=== PATIENT | male | born 1980 ===

== ENCOUNTER 2018-05-20 20:57 | Emergency (ER) | payer MEDICAID ==
--- NOTE | 2018-05-20 22:35 | C.PDOC ---
History Of Present Illness 37 year old male presents with vomiting and abdominal pain after being on a 3 day cocaine binge. Brother is at bedside trying to help him seek rehab program. Time Seen by Provider: 05/20/18 21:42 Chief Complaint (Nursing): Substance Abuse History Per: Patient History/Exam Limitations: no limitations Onset/Duration Of Symptoms: Hrs Current Symptoms Are (Timing): Still Present Suicide/Self Injury Attempted (Context): None Recent travel outside of the [place]: No Past Medical History Reviewed: Historical Data, Nursing Documentation, Vital Signs Vital Signs: Last Vital Signs Temp 98 F 05/20/18 21:17 Pulse 96 H 05/20/18 21:17 Resp 20 05/20/18 21:17 BP 146/118 H 05/20/18 21:17 Pulse Ox 100 05/20/18 21:17 Family History: States: No Known Family Hx - Social History Hx Alcohol Use: No Hx Substance Use: Yes - Immunization History Hx Tetanus Toxoid Vaccination: No Hx Influenza Vaccination: No Hx Pneumococcal Vaccination: No Review Of Systems Constitutional: Negative for: Fever, Chills Cardiovascular: Negative for: Chest Pain, Palpitations Respiratory: Negative for: Cough, Shortness of Breath Gastrointestinal: Positive for: Nausea, Vomiting, Abdominal Pain Neurological: Negative for: Weakness, Numbness Physical Exam - Physical Exam Appears: Non-toxic, Other (Irritable, mild to moderate distress) Skin: Normal Color, Warm Head: Atraumatic, Normacephalic Eye(s): bilateral: Normal Inspection Oral Mucosa: Moist Neck: Normal, No Midline Cervical Tenderness, No Paracervical Tenderness, Supple Chest: Symmetrical, No Tenderness Cardiovascular: Rhythm Regular Respiratory: Normal Breath Sounds, No Rales, No Rhonchi, No Wheezing Gastrointestinal/Abdominal: Bowel Sounds (Hyperactive), Soft, Tenderness (Vaguely), No Guarding, No Rebound Neurological/Psych: Oriented x3, Normal Speech ED Course And Treatment O2 Sat by Pulse Oximetry: 100 (Room air) Pulse Ox Interpretation: Normal Medical Decision Making Medical Decision Making: persistent cocaine abuse 3 day binge diarrhea low susp of mesenteric ischemia- belly benign asleep and comfortable after ED tx ok for d/c and opt f/u. Disposition Doctor Will See Patient In The: Office Counseled Patient/Family Regarding: Studies Performed, Diagnosis - Disposition Referrals: Alcoholics Anonymous [Outside] [facility] [Outside] [facility] [Outside] [facility] [Outside] [facility] [Outside] [facility] [Outside] Disposition: HOME/ ROUTINE Disposition Time: 22:35 Condition: GOOD Additional Instructions: seek outpatient resources for substance aubse isues there is no Detox for Cocaine abuse @ [facility] Rehabilitation is a theraputic option to be explored Zofran for nausea 1 tab every 6 hours as needed Pepcid 20 mg @ night for gastritis symptoms Motrin/Advil 400-600 mg every 6 hours for abdominal discomfort Return to ED if symtpoms significantly change or worsten. Prescriptions: Ondansetron ODT [Zofran ODT] 4 mg PO Q6H PRN #6 odt PRN Reason: Nausea/Vomiting Instructions: Cocaine Use Disorder Forms: [facility] ([facility]) - Clinical Impression Clinical Impression: Cocaine abuse, Diarrhea - Scribe Statement The provider has reviewed the documentation as recorded by the Scribe Lamberto Ag All medical record entries made by the Scribe were at my direction and personally dictated by me. I have reviewed the chart and agree that the record accurately reflects my personal performance of the history, physical exam, medical decision making, and the department course for this patient. I have also personally directed, reviewed, and agree with the discharge instructions and disposition.
[2018-05-20 23:07] VITALS: BP 127/86; PULSE 82; RESP 16; TEMP 98.1
[2018-05-21 00:36] VITALS: O2SAT 100
== END 2018-05-20 23:07 | disposition home or self-care (01) ==
LOC: C.ER 20:57
DX: F14.10 Cocaine abuse, uncomplicated (principal); R19.7 Diarrhea, unspecified
CPT/HCPCS: 96372; 99283; J1885

== ENCOUNTER 2018-05-21 06:06 | Inpatient (IN) | payer MEDICAID ==
--- NOTE | 2018-05-21 06:47 | C.PDOC ---
History Of Present Illness patient c/o diffuse abdominal pain that returned once he returned home the being evaluated in this ED yesterday for the same issue. he came in reporting abdominal pain s/p 3 day binge of cocaine. he states he vomited several times yesterday but none since the pain returned. he denies fever, chills, chest pain or sob. Time Seen by Provider: 05/21/18 06:43 Chief Complaint (Nursing): Abdominal Pain History Per: Patient History/Exam Limitations: no limitations Current Symptoms Are (Timing): Worse Severity: Severe Location Of Pain/Discomfort: Diffuse Quality Of Discomfort: Unable To Describe Associated Symptoms: Nausea, Vomiting. denies: Fever, Chills, Diarrhea, Back Pain, Chest Pain, Urinary Symptoms Past Medical History Vital Signs: Last Vital Signs Temp 97.6 F 05/21/18 06:11 Pulse 104 H 05/21/18 06:11 Resp BP 154/120 H 05/21/18 06:11 Pulse Ox 100 05/21/18 06:11 - Medical History PMH: CAD Surgical History: Coronary Stent Family History: States: CAD, Hypertension - Social History Hx Alcohol Use: No Hx Substance Use: Yes - Immunization History Hx Tetanus Toxoid Vaccination: No Hx Influenza Vaccination: No Hx Pneumococcal Vaccination: No Review Of Systems Constitutional: Negative for: Fever, Chills Cardiovascular: Negative for: Chest Pain, Palpitations Respiratory: Negative for: Shortness of Breath Gastrointestinal: Positive for: Nausea, Vomiting, Abdominal Pain Genitourinary: Negative for: Dysuria Musculoskeletal: Negative for: Back Pain Skin: Negative for: Rash Neurological: Negative for: Weakness, Numbness Physical Exam - Physical Exam Appears: In Acute Distress Skin: Normal Color Head: Atraumatic, Normacephalic Neck: Normal, Normal ROM Chest: Symmetrical Cardiovascular: Rhythm Regular Respiratory: Normal Breath Sounds, No Accessory Muscle Use, No Stridor, No Wheezing Gastrointestinal/Abdominal: Tenderness, No Distention Back: Normal Inspection, No CVA Tenderness Extremity: Normal ROM, No Tenderness Extremity: Bilateral: Atraumatic Pulses: Left Radial: Normal, Right Radial: Normal Neurological/Psych: Oriented x3, Normal Speech, Normal Motor, Normal Sensation ED Course And Treatment O2 Sat by Pulse Oximetry: 100 Disposition - Disposition Disposition Time: 06:55 Condition: STABLE - Clinical Impression Clinical Impression: Abdominal pain Physician Patient Turnover Patient Signed Over To: Bisi Slaughter (abd pain)
[2018-05-21 07:05] LABS: BASO % 0.1 % (0.0-2.0); HEMOGLOBIN 15.9 g/dL (12.0-18.0); LYMPH # 0.8 K/uL (1.0-4.3); LYMPH % 4.5 % (20.0-40.0); MEAN CORPUSCULAR HEMOGLOBIN 28.8 pg (27.0-31.0); MEAN CORPUSCULAR HGB CONC 33.5 g/dL (33.0-37.0); MEAN PLATELET VOLUME 7.7 fL (7.2-11.7); MONO # 1.3 K/uL (0.0-0.8); MONO % 7.6 % (0.0-10.0); NEUT # 15.4 K/uL (1.8-7.0); NEUT % 87.8 % (50.0-75.0); PLATELET COUNT 476 K/uL (130-400); RBC 5.53 Mil/uL (4.40-5.90); RED CELL DISTRIBUTION WIDTH 14.4 % (11.5-14.5); WHITE BLOOD COUNT 17.5 K/uL (4.8-10.8)
[2018-05-21] MEDS ORDERED: Sodium Chloride 0.9% 1,000 ML IV STA ×3 (07:14→08:07)
[2018-05-21 07:16] LABS: ALB/GLOB RATIO 1.5 (1.0-2.1); ALBUMIN 4.8 g/dL (3.5-5.0); CALCIUM 9.8 mg/dl (8.6-10.4)
[2018-05-21] MEDS ORDERED: Sodium Chloride 0.9% 1,000 ML ONE (07:22)
[2018-05-21 07:26] LABS: BANDS 1 % (0-2); LYMPHOCYTE 7 % (20-40); MONOCYTE 10 % (0-10); NEUTROPHIL 82 % (50-75); PLATELET ESTIMATE NORMAL (NORMAL); TOTAL CELLS COUNTED 100
[2018-05-21 07:35] LABS: TROPONIN I 0.072 ng/mL (0.00-0.120)
[2018-05-21 07:49] LABS: VENOUS BLOOD GAS BASE EXCESS -4.6 mmol/L (0.0-2.0); VENOUS BLOOD GAS PCO2 53 mmHg (40-60); VENOUS BLOOD GAS PO2 20 mm/Hg (30-55); VENOUS BLOOD PH 7.25 (7.32-7.43)
[2018-05-21] MEDS ORDERED: Morphine 4 MG/ML VIAL ONE (07:53)
[2018-05-21 08:35] LABS: INR 1.2; PROTHROMBIN TIME 13.5 SECONDS (9.7-12.2)
[2018-05-21 08:59] LABS: CK-MB 4.6 ng/mL (0.0-3.38)
[2018-05-21] MEDS ORDERED: Sodium Chloride 0.9% 2,000 ML ONE (09:15)
--- NOTE | 2018-05-21 09:58 | CT ---
Date of service: 05/21/2018 PROCEDURE: CT Abdomen and Pelvis without intravenous contrast HISTORY: severe abdominal pain, cocaine use, lactade elevat COMPARISON: None. TECHNIQUE: Without contrast.. Contrast dose: 0 Radiation dose: Total exam DLP = 204.89 mGy-cm. This CT exam was performed using one or more of the following dose reduction techniques: Automated exposure control, adjustment of the mA and/or kV according to patient size, and/or use of iterative reconstruction technique. FINDINGS: LOWER THORAX: Unremarkable. LIVER: Unremarkable. No gross lesion or ductal dilatation. GALLBLADDER AND BILE DUCTS: High attenuation material within gallbladder lumen, likely sludge. No calcified gallstones. No mural thickening. PANCREAS: Grossly limited evaluation due to absent intravenous contrast and oral contrast opacification. Paucity of retroperitoneal fat. No gross abnormality. SPLEEN: Unremarkable. ADRENALS: Unremarkable. No mass. KIDNEYS AND URETERS: Multiple punctate nonobstructing left renal calculi. No right renal calculus. No hydronephrosis. No renal mass. VASCULATURE: Unremarkable. No aortic aneurysm. There is atherosclerotic calcification of the abdominal aorta. BOWEL: Multiple mildly dilated small bowel loops, up to 3.9 cm. Air-fluid levels. There is gas seen within large bowel. Most likely adynamic ileus but cannot rule out mechanical bowel obstruction. Follow-up advised. Evaluation of the bowel is limited by the absence of oral contrast material. No evidence of pneumatosis coli. APPENDIX: Not identified. No secondary findings. PERITONEUM: No other significant abnormality identified. Unremarkable. No free fluid. No free air. LYMPH NODES: Unremarkable. No enlarged lymph nodes. BLADDER: Nondistended REPRODUCTIVE: Unremarkable prostate. BONES: No acute fracture. OTHER FINDINGS: None. IMPRESSION: Probable adynamic ileus. Cannot rule out mechanical bowel obstruction. Limited examination. No evidence of pneumoperitoneum. Needs is seen
--- NOTE | 2018-05-21 10:39 | RAD ---
Date of service: 05/21/2018 HISTORY: cocaine use, abdominal pain COMPARISON: No prior. TECHNIQUE: 1 view obtained. FINDINGS: LUNGS: No active pulmonary disease. PLEURA: No significant pleural effusion identified, no pneumothorax apparent. Suspect minor right apical pleural thickening CARDIOVASCULAR: No aortic atherosclerotic calcification present. Heart size borderline/mildly enlarged. No pulmonary vascular congestion. OSSEOUS STRUCTURES: No significant abnormalities. VISUALIZED UPPER ABDOMEN: Normal. OTHER FINDINGS: None. IMPRESSION: No active disease. Suspect minor right apical pleural thickening
[2018-05-21] MEDS ORDERED: Piperacillin/Tazobact 3.375 gm 100 ML IV STA (11:48)
[2018-05-21] MEDS ORDERED: Lactated Ringer's 1,000 ML IV ONE (11:57)
[2018-05-21 11:58] LABS: SQUAMOUS EPITHIAL 1 /hpf (0-5); URINE BACTERIA RARE (<OCC); URINE BILIRUBIN NEGATIVE (NEGATIVE); URINE BLOOD 2+ (NEGATIVE); URINE CLARITY Hazy (Clear); URINE COLOR Yellow (YELLOW); URINE GLUCOSE (UA) NORMAL (Normal); URINE LEUKOCYTE ESTERASE NEG Leu/uL (Negative); URINE PROTEIN NEGATIVE (NEGATIVE); URINE UROBILINOGEN NORMAL mg/dL (0.2-1.0)
[2018-05-21] MEDS ORDERED: metroNIDAZOLE IV 500 mg/100 ml 500 MG/100 ML BAG IV SCH (12:00)
[2018-05-21] MEDS ORDERED: Piperacillin/Tazobact 3.375 gm 100 ML IVPB ONE (12:03)
[2018-05-21] MEDS: Lactated Ringer's 1,000 ML IV SCH ×3 (12:05→19:06)
[2018-05-21 12:43] LABS: BARBITURATES, UR NEGATIVE (NEGATIVE); BENZODIAZEPINES, UR NEGATIVE (NEGATIVE); PHENCYCLIDINE, UR NEGATIVE (NEGATIVE)
[2018-05-21 12:50] LABS: OPIATES, UR POSITIVE (NEGATIVE)
[2018-05-21] MEDS ORDERED: Fluconazole IV 400mg/200ml NS 200 ML IVPB SCH (13:00)
--- NOTE | 2018-05-21 13:32 | CP.PCM.CON ---
<Dana Baker - Last Filed: 05/21/18 15:44> History of Present Illness - History of Present Illness History of Present Illness: Surgery Consult Note for Dr. Evans HPI: Patient is a 37 year old male with history of cocaine use, CAD with stents who presents for diffuse nonspecific progressively worsening abdominal pain associated with nausea and vomiting. He states he has had diarrhea recently, up until this morning. He was recently admitted to [facility] earlier this week for pleural effusion and PE, treated with Brilinta, and discharged home with a script for Xarelto 2 days ago. He has not had Xarelto after discharge. He last used cocaine 2 days ago. Surgery consulted for persistent abdominal pain. PMH: pleural effusion, PE, CAD with 2 stents, cocaine PSH: CAD with 2 stents Home meds: none Allergies: NKDA Social hx: Cocaine use, marijuana use Review of Systems - Constitutional Constitutional: absent: Chills, Fever - Cardiovascular Cardiovascular: absent: Chest Pain, Dyspnea - Respiratory Respiratory: absent: Cough, Dyspnea - Gastrointestinal Gastrointestinal: Abdominal Pain, Nausea, Vomiting Past Patient History - Past Social History Smoking Status: Light Smoker < 10 Cigarettes Daily - CARDIAC Hx Heart Attack: Yes - PSYCHIATRIC Hx Substance Use: Yes - SURGICAL HISTORY Hx Coronary Stent: Yes Meds Allergies/Adverse Reactions: Allergies Allergy/AdvReac Type Severity Reaction Status Date / Time No Known Allergies Allergy Unverified 05/20/18 21:23 - Medications Medications: Current Medications Hydromorphone HCl (Dilaudid) 1 mg IVP Q3H PRN PRN Reason: Pain, severe (8-10) Lactated Ringer's (Lactated Ringer's) 1,000 mls @ 150 mls/hr IV .Q6H40M PRISCA Piperacillin Sod/Tazobactam Sod (Zosyn 3.375 Gm Iv Premix) 3.375 gm in 50 mls @ 100 mls/hr IVPB Q6H PRISCA; Protocol Fluconazole (Diflucan Iv 400mg/200ml Ns) 200 mls @ 100 mls/hr IVPB Q24H PRISCA; Protocol Last Admin: 05/21/18 12:45 Dose: 100 mls/hr Ondansetron HCl (Zofran Inj) 4 mg IVP Q6H PRN PRN Reason: Nausea/Vomiting Pantoprazole Sodium (Protonix Inj) 40 mg IVP Q12H [facility] Physical Exam - Constitutional Appears: In Acute Distress - Head Exam Head Exam: ATRAUMATIC, NORMOCEPHALIC - Eye Exam Eye Exam: EOMI, PERRL - ENT Exam ENT Exam: Mucous Membranes Dry - Neck Exam Neck exam: Positive for: Full Rom - Respiratory Exam Respiratory Exam: Clear to Auscultation Bilateral. absent: Rales, Rhonchi, Wheezes - Cardiovascular Exam Cardiovascular Exam: Tachycardia, +S1, +S2 - GI/Abdominal Exam GI & Abdominal Exam: Diminished Bowel Sounds, Distended, Rigid, Tenderness (diffuse ) - Extremities Exam Extremities exam: Positive for: pedal pulses present. Negative for: calf tenderness, pedal edema - Back Exam Back exam: absent: CVA tenderness (L), CVA tenderness (R) - Neurological Exam Neurological exam: Alert, Oriented x3 - Skin Additional comments: Diffuse mottling of skin with ecchymoses on abdomen, lower extremities and upper extremities Results - Vital Signs Recent Vital Signs: Last Vital Signs Temp 98 F 05/21/18 12:59 Pulse 130 H 05/21/18 12:59 Resp 24 05/21/18 12:59 BP 161/119 H 05/21/18 12:59 Pulse Ox 94 L 05/21/18 12:59 - Labs Result Diagrams: 05/21/18 07:02 05/21/18 07:02 Labs: Laboratory Results - last 24 hr 05/21/18 05/21/18 05/21/18 07:02 07:02 07:27 WBC 17.5 H RBC 5.53 Hgb 15.9 Hct 47.6 MCV 86.0 MCH 28.8 MCHC 33.5 RDW 14.4 Plt Count 476 H MPV 7.7 Neut % (Auto) 87.8 H Lymph % (Auto) 4.5 L Buchanan % (Auto) 7.6 Eos % (Auto) 0.0 Baso % (Auto) 0.1 Neut # (Auto) 15.4 H Lymph # (Auto) 0.8 L Buchanan # (Auto) 1.3 H Eos # (Auto) 0.0 Baso # (Auto) 0.0 Neutrophils % (Manual) 82 H Band Neutrophils % 1 Lymphocytes % (Manual) 7 L Monocytes % (Manual) 10 Platelet Estimate Normal PT INR APTT Fibrinogen D-Dimer, Quantitative pO2 VBG pH VBG pCO2 VBG HCO3 VBG Total CO2 VBG O2 Sat (Calc) VBG Base Excess VBG Potassium Glucose Lactate Crit Value Called To Crit Value Called By Crit Value Read Back Blood Gas Notified Time Sodium 131 L Potassium 3.9 Chloride 89 L Carbon Dioxide 23 Anion Gap 23 H BUN 71 H Creatinine 3.4 H Est GFR ( Amer) 25 Est GFR (Non-Af Amer) 20 Random Glucose 153 H Calcium 9.8 Total Bilirubin 0.7 AST 32 ALT 42 Alkaline Phosphatase 93 Total Creatine Kinase 230 H CK-MB (Mass) 4.60 H Troponin I 0.0720 Total Protein 8.0 Albumin 4.8 Globulin 3.2 Albumin/Globulin Ratio 1.5 Lipase 115 Venous Blood Potassium Urine Color Urine Clarity Urine pH Ur Specific Willis Urine Protein Urine Glucose (UA) Urine Ketones Urine Blood Urine Nitrate Urine Bilirubin Urine Urobilinogen Ur Leukocyte Esterase Urine WBC (Auto) Urine RBC (Auto) Ur Squamous Epith Cells Urine Bacteria Urine Opiates Screen Urine Methadone Screen Ur Barbiturates Screen Ur Phencyclidine Scrn Ur Amphetamines Screen U Benzodiazepines Scrn U Oth Cocaine Metabols U Cannabinoids Screen Blood Type Antibody Screen 05/21/18 05/21/18 05/21/18 07:42 08:09 08:09 WBC RBC Hgb Hct MCV MCH MCHC RDW Plt Count MPV Neut % (Auto) Lymph % (Auto) Buchanan % (Auto) Eos % (Auto) Baso % (Auto) Neut # (Auto) Lymph # (Auto) Buchanan # (Auto) Eos # (Auto) Baso # (Auto) Neutrophils % (Manual) Band Neutrophils % Lymphocytes % (Manual) Monocytes % (Manual) Platelet Estimate PT 13.5 H INR 1.2 APTT 35 H Fibrinogen 427 H D-Dimer, Quantitative 632 H pO2 20 L VBG pH 7.25 L VBG pCO2 53 VBG HCO3 19.3 VBG Total CO2 24.8 VBG O2 Sat (Calc) 23.0 L VBG Base Excess -4.6 L VBG Potassium 3.8 Glucose 130 H Lactate 5.2 H* Crit Value Called To Dr zuluaga Crit Value Called By Ralph rodriguez dental hygienist mobile coordinator Crit Value Read Back Y Blood Gas Notified Time 749 Sodium 134.0 Potassium Chloride 94.0 L Carbon Dioxide Anion Gap BUN Creatinine Est GFR ( Amer) Est GFR (Non-Af Amer) Random Glucose Calcium Total Bilirubin AST ALT Alkaline Phosphatase Total Creatine Kinase CK-MB (Mass) Troponin I Total Protein Albumin Globulin Albumin/Globulin Ratio Lipase Venous Blood Potassium 3.8 Urine Color Urine Clarity Urine pH Ur Specific Willis Urine Protein Urine Glucose (UA) Urine Ketones Urine Blood Urine Nitrate Urine Bilirubin Urine Urobilinogen Ur Leukocyte Esterase Urine WBC (Auto) Urine RBC (Auto) Ur Squamous Epith Cells Urine Bacteria Urine Opiates Screen Urine Methadone Screen Ur Barbiturates Screen Ur Phencyclidine Scrn Ur Amphetamines Screen U Benzodiazepines Scrn U Oth Cocaine Metabols U Cannabinoids Screen Blood Type A POSITIVE Antibody Screen Negative 05/21/18 05/21/18 11:45 11:45 WBC RBC Hgb Hct MCV MCH MCHC RDW Plt Count MPV Neut % (Auto) Lymph % (Auto) Buchanan % (Auto) Eos % (Auto) Baso % (Auto) Neut # (Auto) Lymph # (Auto) Buchanan # (Auto) Eos # (Auto) Baso # (Auto) Neutrophils % (Manual) Band Neutrophils % Lymphocytes % (Manual) Monocytes % (Manual) Platelet Estimate PT INR APTT Fibrinogen D-Dimer, Quantitative pO2 VBG pH VBG pCO2 VBG HCO3 VBG Total CO2 VBG O2 Sat (Calc) VBG Base Excess VBG Potassium Glucose Lactate Crit Value Called To Crit Value Called By Crit Value Read Back Blood Gas Notified Time Sodium Potassium Chloride Carbon Dioxide Anion Gap BUN Creatinine Est GFR ( Amer) Est GFR (Non-Af Amer) Random Glucose Calcium Total Bilirubin AST ALT Alkaline Phosphatase Total Creatine Kinase CK-MB (Mass) Troponin I Total Protein Albumin Globulin Albumin/Globulin Ratio Lipase Venous Blood Potassium Urine Color Yellow Urine Clarity Hazy Urine pH 5.0 Ur Specific Willis 1.014 Urine Protein Negative Urine Glucose (UA) Normal Urine Ketones Negative Urine Blood 2+ H Urine Nitrate Negative Urine Bilirubin Negative Urine Urobilinogen Normal Ur Leukocyte Esterase Neg Urine WBC (Auto) 5 Urine RBC (Auto) 2 Ur Squamous Epith Cells 1 Urine Bacteria Rare Urine Opiates Screen Positive H Urine Methadone Screen Negative Ur Barbiturates Screen Negative Ur Phencyclidine Scrn Negative Ur Amphetamines Screen Negative U Benzodiazepines Scrn Negative U Oth Cocaine Metabols Positive H U Cannabinoids Screen Positive H Blood Type Antibody Screen Assessment & Plan - Assessment and Plan (Free Text) Assessment: 37 year old male with history of CAD with stents, cocaine use, recent PE who presents with severe abdominal pain. Plan: CT reviewed with radiologist and attending Dr. Evans No extraluminal free air is noted 16 Mauritian NG tube inserted with 800cc pink gastric output Puentes inserted with 200cc of urine output Patient's abdomen noted to be more soft after NG tube placement. If pain persists and clinical symptoms worsen, will repeat CT scan with contrast through NG tube Monitor strict I&Os from NG Tube and puentes IV Fluid resuscitation Further medical management by ICU Case discussed with Dr. Cristina Baker, PGY1 <Bahman Evans B - Last Filed: 05/23/18 18:40> Results - Vital Signs Recent Vital Signs: Last Vital Signs Temp 98.8 F 05/22/18 08:00 Pulse 101 H 05/22/18 10:00 Resp 17 05/22/18 10:00 BP 98/62 L 05/22/18 09:58 Pulse Ox 100 05/22/18 10:00 - Labs Result Diagrams: 05/22/18 06:31 05/22/18 06:31 Attending/Attestation - Attestation I have personally seen and examined this patient.: Yes I have fully participated in the care of the patient.: Yes I have reviewed all pertinent clinical information: Yes Notes (Text): Pt was seen and examined at bedside Agree with above note and assessment Pt with IVDA, PE with Abdominal pain and Diarrhea Abdomen: Soft, Mild Distended, Mild tender, No peritoneal signs Labs and Radiology reviewed Ass: IVDA, PE, Ileus, Coliits/Enteritis Plan : IV antibiotics NG tube to LIS NPO, IVF Repeat Labs in am Repeat CT scan if no improvement in lactate after resuscitation. c.w current mx Plan d.w pt in detail Risk and benefit explained in detail.
--- NOTE | 2018-05-21 14:02 | RAD ---
Date of service: 05/21/2018 HISTORY: Severe abdominal pain COMPARISON: None available. TECHNIQUE: 1 view obtained. FINDINGS: BOWEL: Dilated small bowel, colon. Air-fluid level in the stomach. No visible free air. BONES: Normal. OTHER FINDINGS: None. IMPRESSION: Distended colon and small bowel as well as stomach. Etiology uncertain. No visible free air.
--- NOTE | 2018-05-21 14:04 | RAD ---
Date of service: 05/21/2018 HISTORY: NG Tube placement COMPARISON: Chest x-ray 05/21/2018 TECHNIQUE: Chest one view . FINDINGS: LUNGS: No focal consolidation is seen. PLEURA: No pleural effusion is identified. CARDIOVASCULAR: Heart size is within normal limits. No atherosclerotic calcification present. OSSEOUS STRUCTURES: No significant abnormalities. VISUALIZED UPPER ABDOMEN: There is an enteric feeding tube with tip overlying region of the stomach. OTHER FINDINGS: None. IMPRESSION: There is an enteric feeding tube with tip overlying region of the stomach.
[2018-05-21] MEDS: HYDROmorphone 1 mg/ml ISec IVP PRN ×2 (14:20→19:09)
--- NOTE | 2018-05-21 15:01 | CP.PCM.CON ---
<Alexa Sutherland - Last Filed: 05/21/18 19:38> History of Present Illness - History of Present Illness History of Present Illness: 37 year old male with pmhx of CAD with stents, cocaine abuse, recently diagnosed PE, admitted for evaluation of nausea/vomiting/abdominal pain; CT on admission showed probable adynamic ileus. Patient was recently admitted at [facility] and discharged 05/19 with PE treated with Brilinta, pt was given prescription to continue treatment on Xarelto, however never has been non-compliant. Patient has history of cocaine abuse with last use reportedly on 05/16 Review of Systems - Cardiovascular Cardiovascular: absent: Chest Pain, Dyspnea, Edema, Palpitations - Respiratory Respiratory: absent: Cough, Dyspnea - Gastrointestinal Gastrointestinal: Abdominal Pain, Diarrhea, Nausea, Vomiting - Genitourinary Genitourinary: absent: Change in Urinary Stream - Integumentary Integumentary: Other (new skin discoloration to extremities) - Neurological Neurological: absent: Dizziness, Syncope Past Patient History - Past Social History Smoking Status: Light Smoker < 10 Cigarettes Daily - CARDIAC Hx Heart Attack: Yes - PSYCHIATRIC Hx Substance Use: Yes - SURGICAL HISTORY Hx Coronary Stent: Yes Meds Allergies/Adverse Reactions: Allergies Allergy/AdvReac Type Severity Reaction Status Date / Time No Known Allergies Allergy Unverified 05/20/18 21:23 - Medications Medications: Current Medications Hydromorphone HCl (Dilaudid) 1 mg IVP Q3H PRN PRN Reason: Pain, severe (8-10) Last Admin: 05/21/18 14:20 Dose: 1 mg Lactated Ringer's (Lactated Ringer's) 1,000 mls @ 150 mls/hr IV .Q6H40M PRISCA Last Admin: 05/21/18 13:39 Dose: 150 mls/hr Piperacillin Sod/Tazobactam Sod (Zosyn 3.375 Gm Iv Premix) 3.375 gm in 50 mls @ 100 mls/hr IVPB Q6H PRISCA; Protocol Fluconazole (Diflucan Iv 400mg/200ml Ns) 200 mls @ 100 mls/hr IVPB Q24H PRISCA; Protocol Last Admin: 05/21/18 12:45 Dose: 100 mls/hr Ondansetron HCl (Zofran Inj) 4 mg IVP Q6H PRN PRN Reason: Nausea/Vomiting Pantoprazole Sodium (Protonix Inj) 40 mg IVP Q12H PRISCA Physical Exam - Constitutional Appears: Non-toxic, No Acute Distress - Head Exam Head Exam: ATRAUMATIC, NORMAL INSPECTION, NORMOCEPHALIC - Eye Exam Eye Exam: EOMI, Normal appearance - ENT Exam ENT Exam: Mucous Membranes Dry, Normal Exam - Neck Exam Neck exam: Positive for: Normal Inspection - Respiratory Exam Respiratory Exam: Clear to Auscultation Bilateral. absent: Respiratory Distress, NORMAL BREATHING PATTERN (tachypneic, left anterior chest wall) - Cardiovascular Exam Cardiovascular Exam: Tachycardia, REGULAR RHYTHM, +S1, +S2 - GI/Abdominal Exam GI & Abdominal Exam: Diminished Bowel Sounds, Firm, Tenderness (diffusely TTP). absent: Distended - Neurological Exam Neurological exam: Alert, Oriented x3 - Psychiatric Exam Psychiatric exam: Normal Affect, Normal Mood - Skin Skin Exam: Dry, Intact, Warm Additional comments: mottling to UE, LE abdominal ecchymosis Results - Vital Signs Recent Vital Signs: Last Vital Signs Temp 98 F 05/21/18 12:59 Pulse 130 H 05/21/18 12:59 Resp 24 05/21/18 12:59 BP 161/119 H 05/21/18 12:59 Pulse Ox 94 L 05/21/18 14:06 - Labs Result Diagrams: 05/21/18 07:02 05/21/18 07:02 Labs: Laboratory Results - last 24 hr 05/21/18 05/21/18 05/21/18 07:02 07:02 07:27 WBC 17.5 H RBC 5.53 Hgb 15.9 Hct 47.6 MCV 86.0 MCH 28.8 MCHC 33.5 RDW 14.4 Plt Count 476 H MPV 7.7 Neut % (Auto) 87.8 H Lymph % (Auto) 4.5 L [place] % (Auto) 7.6 Eos % (Auto) 0.0 Baso % (Auto) 0.1 Neut # (Auto) 15.4 H Lymph # (Auto) 0.8 L [place] # (Auto) 1.3 H Eos # (Auto) 0.0 Baso # (Auto) 0.0 Neutrophils % (Manual) 82 H Band Neutrophils % 1 Lymphocytes % (Manual) 7 L Monocytes % (Manual) 10 Platelet Estimate Normal PT INR APTT Fibrinogen D-Dimer, Quantitative pO2 VBG pH VBG pCO2 VBG HCO3 VBG Total CO2 VBG O2 Sat (Calc) VBG Base Excess VBG Potassium Glucose Lactate Crit Value Called To Crit Value Called By Crit Value Read Back Blood Gas Notified Time Sodium 131 L Potassium 3.9 Chloride 89 L Carbon Dioxide 23 Anion Gap 23 H BUN 71 H Creatinine 3.4 H Est GFR ( Amer) 25 Est GFR (Non-Af Amer) 20 Random Glucose 153 H Calcium 9.8 Total Bilirubin 0.7 AST 32 ALT 42 Alkaline Phosphatase 93 Total Creatine Kinase 230 H CK-MB (Mass) 4.60 H Troponin I 0.0720 Total Protein 8.0 Albumin 4.8 Globulin 3.2 Albumin/Globulin Ratio 1.5 Lipase 115 Venous Blood Potassium Urine Color Urine Clarity Urine pH Ur Specific [place] Urine Protein Urine Glucose (UA) Urine Ketones Urine Blood Urine Nitrate Urine Bilirubin Urine Urobilinogen Ur Leukocyte Esterase Urine WBC (Auto) Urine RBC (Auto) Ur Squamous Epith Cells Urine Bacteria Urine Opiates Screen Urine Methadone Screen Ur Barbiturates Screen Ur Phencyclidine Scrn Ur Amphetamines Screen U Benzodiazepines Scrn U Oth Cocaine Metabols U Cannabinoids Screen Blood Type Antibody Screen 05/21/18 05/21/18 05/21/18 07:42 08:09 08:09 WBC RBC Hgb Hct MCV MCH MCHC RDW Plt Count MPV Neut % (Auto) Lymph % (Auto) [place] % (Auto) Eos % (Auto) Baso % (Auto) Neut # (Auto) Lymph # (Auto) [place] # (Auto) Eos # (Auto) Baso # (Auto) Neutrophils % (Manual) Band Neutrophils % Lymphocytes % (Manual) Monocytes % (Manual) Platelet Estimate PT 13.5 H INR 1.2 APTT 35 H Fibrinogen 427 H D-Dimer, Quantitative 632 H pO2 20 L VBG pH 7.25 L VBG pCO2 53 VBG HCO3 19.3 VBG Total CO2 24.8 VBG O2 Sat (Calc) 23.0 L VBG Base Excess -4.6 L VBG Potassium 3.8 Glucose 130 H Lactate 5.2 H* Crit Value Called To Dr zuluaga Crit Value Called By Ralph rodriguez demo event specialist Crit Value Read Back Y Blood Gas Notified Time 749 Sodium 134.0 Potassium Chloride 94.0 L Carbon Dioxide Anion Gap BUN Creatinine Est GFR ( Amer) Est GFR (Non-Af Amer) Random Glucose Calcium Total Bilirubin AST ALT Alkaline Phosphatase Total Creatine Kinase CK-MB (Mass) Troponin I Total Protein Albumin Globulin Albumin/Globulin Ratio Lipase Venous Blood Potassium 3.8 Urine Color Urine Clarity Urine pH Ur Specific [place] Urine Protein Urine Glucose (UA) Urine Ketones Urine Blood Urine Nitrate Urine Bilirubin Urine Urobilinogen Ur Leukocyte Esterase Urine WBC (Auto) Urine RBC (Auto) Ur Squamous Epith Cells Urine Bacteria Urine Opiates Screen Urine Methadone Screen Ur Barbiturates Screen Ur Phencyclidine Scrn Ur Amphetamines Screen U Benzodiazepines Scrn U Oth Cocaine Metabols U Cannabinoids Screen Blood Type A POSITIVE Antibody Screen Negative 05/21/18 05/21/18 11:45 11:45 WBC RBC Hgb Hct MCV MCH MCHC RDW Plt Count MPV Neut % (Auto) Lymph % (Auto) [place] % (Auto) Eos % (Auto) Baso % (Auto) Neut # (Auto) Lymph # (Auto) [place] # (Auto) Eos # (Auto) Baso # (Auto) Neutrophils % (Manual) Band Neutrophils % Lymphocytes % (Manual) Monocytes % (Manual) Platelet Estimate PT INR APTT Fibrinogen D-Dimer, Quantitative pO2 VBG pH VBG pCO2 VBG HCO3 VBG Total CO2 VBG O2 Sat (Calc) VBG Base Excess VBG Potassium Glucose Lactate Crit Value Called To Crit Value Called By Crit Value Read Back Blood Gas Notified Time Sodium Potassium Chloride Carbon Dioxide Anion Gap BUN Creatinine Est GFR ( Amer) Est GFR (Non-Af Amer) Random Glucose Calcium Total Bilirubin AST ALT Alkaline Phosphatase Total Creatine Kinase CK-MB (Mass) Troponin I Total Protein Albumin Globulin Albumin/Globulin Ratio Lipase Venous Blood Potassium Urine Color Yellow Urine Clarity Hazy Urine pH 5.0 Ur Specific [place] 1.014 Urine Protein Negative Urine Glucose (UA) Normal Urine Ketones Negative Urine Blood 2+ H Urine Nitrate Negative Urine Bilirubin Negative Urine Urobilinogen Normal Ur Leukocyte Esterase Neg Urine WBC (Auto) 5 Urine RBC (Auto) 2 Ur Squamous Epith Cells 1 Urine Bacteria Rare Urine Opiates Screen Positive H Urine Methadone Screen Negative Ur Barbiturates Screen Negative Ur Phencyclidine Scrn Negative Ur Amphetamines Screen Negative U Benzodiazepines Scrn Negative U Oth Cocaine Metabols Positive H U Cannabinoids Screen Positive H Blood Type Antibody Screen Assessment & Plan - Assessment and Plan (Free Text) Assessment: 37 year old male with history of CAD with stents, cocaine use, recent PE admitted for evaluation of acute onset abdominal pain/nausea/vomiting Plan: Neuro: AAOx3 Pulm: CV: hemodynamically stable tachycardia likely 2/2 pain IVF GI NPO NG tube with serous output approx 1L on evaluation, decompresssion Protonix antiemetics, zofran prn Pain control dilaudid CT abdomen: adynamic ileus, no evidence of free air IV Abx zosyn IVF, LR @150 Surg, Dr. Evans puentes inserted I/Os Ppx: VTE: SCDs GI: Protonix 40 q12 Patient currently HD stable, monitor in ICU Discussed w/ Dr. Villasenor -Alexa Sutherland, PGY-1 <Peng Villasenor - Last Filed: 05/22/18 19:58> Results - Vital Signs Recent Vital Signs: Last Vital Signs Temp 98.8 F 05/22/18 08:00 Pulse 101 H 05/22/18 10:00 Resp 17 05/22/18 10:00 BP 98/62 L 05/22/18 09:58 Pulse Ox 100 05/22/18 10:00 - Labs Result Diagrams: 05/22/18 06:31 05/22/18 06:31 Labs: Laboratory Results - last 24 hr 05/21/18 05/21/18 05/21/18 23:32 23:32 23:32 WBC 8.6 D RBC 4.87 Hgb 14.1 Hct 42.0 MCV 86.2 MCH 29.0 MCHC 33.6 RDW 14.4 Plt Count 280 D MPV 8.0 Neut % (Auto) 87.4 H Lymph % (Auto) 4.7 L [place] % (Auto) 7.7 Eos % (Auto) 0.0 Baso % (Auto) 0.2 Neut # (Auto) 7.5 H Lymph # (Auto) 0.4 L [place] # (Auto) 0.7 Eos # (Auto) 0.0 Baso # (Auto) 0.0 Neutrophils % (Manual) 61 Band Neutrophils % 20 H* Lymphocytes % (Manual) 7 L Reactive Lymphs % 4 H Monocytes % (Manual) 8 Platelet Estimate Normal RBC Morphology Normal PT 16.2 H INR 1.5 APTT 31 Puncture Site pCO2 pO2 HCO3 ABG pH ABG Total CO2 ABG O2 Saturation ABG Base Excess [place] Test ABG Potassium Glucose Lactate Liter Flow Crit Value Called To Crit Value Called By Crit Value Read Back Blood Gas Notified Time Sodium 135 Potassium 5.1 Chloride 103 Carbon Dioxide 20 L Anion Gap 18 BUN 67 H Creatinine 2.6 H Est GFR ( Amer) 34 Est GFR (Non-Af Amer) 28 POC Glucose (mg/dL) Random Glucose 74 L D Hemoglobin A1c Calcium 8.7 Phosphorus Magnesium Total Bilirubin 1.4 H AST 120 H D ALT 59 Alkaline Phosphatase 78 Total Creatine Kinase 536 H CK-MB (Mass) 25.4 H Troponin I 0.0920 Total Protein 5.8 L Albumin 3.4 L D Globulin 2.4 Albumin/Globulin Ratio 1.4 Triglycerides 52 Cholesterol 94 LDL Cholesterol Direct 62 HDL Cholesterol 31 Arterial Blood Potassium Blood Type Antibody Screen 05/21/18 05/21/18 05/21/18 23:32 23:36 23:48 WBC RBC Hgb Hct MCV MCH MCHC RDW Plt Count MPV Neut % (Auto) Lymph % (Auto) [place] % (Auto) Eos % (Auto) Baso % (Auto) Neut # (Auto) Lymph # (Auto) [place] # (Auto) Eos # (Auto) Baso # (Auto) Neutrophils % (Manual) Band Neutrophils % Lymphocytes % (Manual) Reactive Lymphs % Monocytes % (Manual) Platelet Estimate RBC Morphology PT INR APTT Puncture Site Rb pCO2 28 L pO2 112 H HCO3 19.4 L ABG pH 7.38 ABG Total CO2 17.5 L ABG O2 Saturation 99.1 H ABG Base Excess -7.1 L [place] Test Na ABG Potassium 5.1 Glucose 76 Lactate 3.9 H Liter Flow 2.0 Crit Value Called To Crit Value Called By Crit Value Read Back Blood Gas Notified Time Sodium 132.0 Potassium Chloride 101.0 Carbon Dioxide Anion Gap BUN Creatinine Est GFR ( Amer) Est GFR (Non-Af Amer) POC Glucose (mg/dL) 82 Random Glucose Hemoglobin A1c 5.4 Calcium Phosphorus Magnesium Total Bilirubin AST ALT Alkaline Phosphatase Total Creatine Kinase CK-MB (Mass) Troponin I Total Protein Albumin Globulin Albumin/Globulin Ratio Triglycerides Cholesterol LDL Cholesterol Direct HDL Cholesterol Arterial Blood Potassium 5.1 Blood Type Antibody Screen 05/22/18 05/22/18 05/22/18 05:15 05:59 06:01 WBC RBC Hgb Hct MCV MCH MCHC RDW Plt Count MPV Neut % (Auto) Lymph % (Auto) [place] % (Auto) Eos % (Auto) Baso % (Auto) Neut # (Auto) Lymph # (Auto) [place] # (Auto) Eos # (Auto) Baso # (Auto) Neutrophils % (Manual) Band Neutrophils % Lymphocytes % (Manual) Reactive Lymphs % Monocytes % (Manual) Platelet Estimate RBC Morphology PT INR APTT Puncture Site Rr pCO2 24 L pO2 112 H HCO3 18.2 L ABG pH 7.39 ABG Total CO2 15.2 L ABG O2 Saturation 98.8 H ABG Base Excess -8.6 L [place] Test Pos ABG Potassium 5.9 H Glucose 20 L* D Lactate 5.7 H* Liter Flow 2.0 Crit Value Called To Mariam rn Crit Value Called By [place] demo event specialist Crit Value Read Back Y Blood Gas Notified Time 554 Sodium 135.0 Potassium Chloride 103.0 Carbon Dioxide Anion Gap BUN Creatinine Est GFR ( Amer) Est GFR (Non-Af Amer) POC Glucose (mg/dL) < 20 L* < 20 L* Random Glucose Hemoglobin A1c Calcium Phosphorus Magnesium Total Bilirubin AST ALT Alkaline Phosphatase Total Creatine Kinase CK-MB (Mass) Troponin I Total Protein Albumin Globulin Albumin/Globulin Ratio Triglycerides Cholesterol LDL Cholesterol Direct HDL Cholesterol Arterial Blood Potassium 5.9 H Blood Type Antibody Screen 05/22/18 05/22/18 05/22/18 06:27 06:31 06:31 WBC 10.1 RBC 4.77 Hgb 13.9 Hct 41.6 MCV 87.3 MCH 29.1 MCHC 33.4 RDW 14.4 Plt Count 247 MPV 8.5 Neut % (Auto) 88.7 H Lymph % (Auto) 4.0 L [place] % (Auto) 6.8 Eos % (Auto) 0.4 Baso % (Auto) 0.1 Neut # (Auto) 9.0 H Lymph # (Auto) 0.4 L [place] # (Auto) 0.7 Eos # (Auto) 0.0 Baso # (Auto) 0.0 Neutrophils % (Manual) 21 L Band Neutrophils % 58 H* Lymphocytes % (Manual) 14 L Reactive Lymphs % Monocytes % (Manual) 7 Platelet Estimate Normal RBC Morphology Normal PT INR APTT Puncture Site pCO2 pO2 HCO3 ABG pH ABG Total CO2 ABG O2 Saturation ABG Base Excess [place] Test ABG Potassium Glucose Lactate Liter Flow Crit Value Called To Crit Value Called By Crit Value Read Back Blood Gas Notified Time Sodium 137 Potassium 5.8 H Chloride 103 Carbon Dioxide 20 L Anion Gap 20 BUN 70 H Creatinine 2.9 H Est GFR ( Amer) 30 Est GFR (Non-Af Amer) 24 POC Glucose (mg/dL) Random Glucose 26 L* D Hemoglobin A1c Calcium 9.0 Phosphorus 7.5 H Magnesium 2.6 H Total Bilirubin 2.7 H AST 898 H D ALT 853 H D Alkaline Phosphatase 83 Total Creatine Kinase CK-MB (Mass) Troponin I Total Protein 5.8 L Albumin 3.4 L Globulin 2.4 Albumin/Globulin Ratio 1.4 Triglycerides Cholesterol LDL Cholesterol Direct HDL Cholesterol Arterial Blood Potassium Blood Type A POSITIVE Antibody Screen Negative 05/22/18 05/22/18 05/22/18 08:52 08:53 08:54 WBC RBC Hgb Hct MCV MCH MCHC RDW Plt Count MPV Neut % (Auto) Lymph % (Auto) [place] % (Auto) Eos % (Auto) Baso % (Auto) Neut # (Auto) Lymph # (Auto) [place] # (Auto) Eos # (Auto) Baso # (Auto) Neutrophils % (Manual) Band Neutrophils % Lymphocytes % (Manual) Reactive Lymphs % Monocytes % (Manual) Platelet Estimate RBC Morphology PT 24.7 H D INR 2.3 D APTT 32 Puncture Site pCO2 pO2 HCO3 ABG pH ABG Total CO2 ABG O2 Saturation ABG Base Excess [place] Test ABG Potassium Glucose Lactate Liter Flow Crit Value Called To Crit Value Called By Crit Value Read Back Blood Gas Notified Time Sodium Potassium Chloride Carbon Dioxide Anion Gap BUN Creatinine Est GFR ( Amer) Est GFR (Non-Af Amer) POC Glucose (mg/dL) 43 L 44 L Random Glucose Hemoglobin A1c Calcium Phosphorus Magnesium Total Bilirubin AST ALT Alkaline Phosphatase Total Creatine Kinase CK-MB (Mass) Troponin I Total Protein Albumin Globulin Albumin/Globulin Ratio Triglycerides Cholesterol LDL Cholesterol Direct HDL Cholesterol Arterial Blood Potassium Blood Type Antibody Screen Attending/Attestation - Attestation I have personally seen and examined this patient.: Yes I have fully participated in the care of the patient.: Yes I have reviewed all pertinent clinical information: Yes Notes (Text): The patient was Seen/interviewed and examined by me at the bedside with the FP resident and surgical team including the resident and attending in the emergency room, Medical records reviewed and Management issues were discussed and formulated with the house staff. I have reviewed all the relevant clinical, laboratory, hemodynamic, radiographic data and medications Patient is a 37 years old male with past medical history coronary artery disease status post stents, polysubstance abuse including cocaine and recent admission to [facility] for pulmonary embolism and was discharged on anticoagulation. Who presents to the emergency room with complaint of abdominal pain and nausea, he was recently evaluated in the emergency room and discharged but returned back with worsening of his abdominal pain and not feeling well. In the emergency room he is alert, awake, oriented, he is restless earlier because of abdominal pain, but feels better now after received IV zofran, PPI, Protonix, patient also received antibiotic with IV Zosyn, Flagyl and Diflucan. pt comfortable, and in no apparent respiratory distress, he was hemodynamically stable and adequately saturating. Abd exam revealed distended, mild diffuse tenderness with diminished Bowel Sounds. Patient was also noted with some mottling of the skin in the lower extremities, fibrinogen level was 427/d-dimer of 632 which rules out possibility of disseminated intra-vascular coagulation. Abd CT reviewed with radiologist and attending Dr. Evans and noted for no extraluminal free air. We will admit the patient to the intensive care unit for hemodynamic monitoring, keep n.p.o. for now, aggressive IV hydration and volume resuscitation, frequent labs, trend lactate, serial abdominal exams, the plan discussed with the surgi alex resident and if there is any deterioration of the abdominal exam we will get a stat CT scan and would be a possibility for surgical intervention Continue with empiric, spectrum antibiotic coverage NG tube placement, and Puentes, strict I's and O's. Resident will work on getting old records from [facility]. Pt's current status is discussed with pt / pt's family I concur with resident's assessment and plan of care, patient care endorsed to the ICU team
[2018-05-21] MEDS: Piperacill/Tazo 3.375gm in Dex 3.375 GM/50 ML BAG IVPB SCH (19:15)
--- NOTE | 2018-05-21 19:44 | CP.PCM.HP ---
Present on Admission - Present on Admission Any Indicators Present on Admission: No Past Patient History - Past Medical History & Family History Past Medical History?: Yes - Past Social History Smoking Status: Light Smoker < 10 Cigarettes Daily - CARDIAC Hx Heart Attack: Yes - PULMONARY Hx Respiratory Disorders: Yes Hx Pulmonary Embolism: Yes - NEUROLOGICAL Hx Neurological Disorder: No - HEENT Hx HEENT Problems: No - RENAL Hx Chronic Kidney Disease: No - ENDOCRINE/METABOLIC Hx Endocrine Disorders: No - HEMATOLOGICAL/ONCOLOGICAL Hx Blood Disorders: No - INTEGUMENTARY Hx Dermatological Problems: No - MUSCULOSKELETAL/RHEUMATOLOGICAL Hx Musculoskeletal Disorders: No Hx Falls: No - GASTROINTESTINAL Hx Diarrhea: Yes Hx Nausea: Yes Hx Vomiting: Yes - GENITOURINARY/GYNECOLOGICAL Hx Genitourinary Disorders: No - PSYCHIATRIC Hx Substance Use: Yes - SURGICAL HISTORY Hx Coronary Stent: Yes - ANESTHESIA Hx Anesthesia: Yes Hx Anesthesia Reactions: No Meds Allergies/Adverse Reactions: Allergies Allergy/AdvReac Type Severity Reaction Status Date / Time No Known Allergies Allergy Unverified 05/20/18 21:23 Physical Exam - Constitutional Appears: Well - Head Exam Head Exam: ATRAUMATIC, NORMAL INSPECTION, NORMOCEPHALIC - Eye Exam Eye Exam: EOMI, Normal appearance, PERRL Pupil Exam: NORMAL ACCOMODATION, PERRL - ENT Exam ENT Exam: Mucous Membranes Moist, Normal Exam - Neck Exam Neck exam: Positive for: Normal Inspection - Respiratory Exam Respiratory Exam: Decreased Breath Sounds - Cardiovascular Exam Cardiovascular Exam: REGULAR RHYTHM, +S1, +S2 - GI/Abdominal Exam GI & Abdominal Exam: Diminished Bowel Sounds, Hyperactive Bowel Sounds - Rectal Exam Rectal Exam: Deferred - Neurological Exam Neurological exam: Oriented x3 Results - Vital Signs Recent Vital Signs: Last Vital Signs Temp 98.8 F 05/21/18 16:00 Pulse 119 H 05/21/18 16:20 Resp 32 H 05/21/18 16:20 BP 112/70 05/21/18 16:00 Pulse Ox 95 05/21/18 16:20 - Labs Result Diagrams: 05/21/18 07:02 05/21/18 07:02 Labs: Laboratory Results - last 24 hr 05/21/18 05/21/18 05/21/18 07:02 07:02 07:27 WBC 17.5 H RBC 5.53 Hgb 15.9 Hct 47.6 MCV 86.0 MCH 28.8 MCHC 33.5 RDW 14.4 Plt Count 476 H MPV 7.7 Neut % (Auto) 87.8 H Lymph % (Auto) 4.5 L [place] % (Auto) 7.6 Eos % (Auto) 0.0 Baso % (Auto) 0.1 Neut # (Auto) 15.4 H Lymph # (Auto) 0.8 L [place] # (Auto) 1.3 H Eos # (Auto) 0.0 Baso # (Auto) 0.0 Neutrophils % (Manual) 82 H Band Neutrophils % 1 Lymphocytes % (Manual) 7 L Monocytes % (Manual) 10 Platelet Estimate Normal PT INR APTT Fibrinogen D-Dimer, Quantitative pO2 VBG pH VBG pCO2 VBG HCO3 VBG Total CO2 VBG O2 Sat (Calc) VBG Base Excess VBG Potassium Glucose Lactate Crit Value Called To Crit Value Called By Crit Value Read Back Blood Gas Notified Time Sodium 131 L Potassium 3.9 Chloride 89 L Carbon Dioxide 23 Anion Gap 23 H BUN 71 H Creatinine 3.4 H Est GFR ( Amer) 25 Est GFR (Non-Af Amer) 20 Random Glucose 153 H Calcium 9.8 Total Bilirubin 0.7 AST 32 ALT 42 Alkaline Phosphatase 93 Total Creatine Kinase 230 H CK-MB (Mass) 4.60 H Troponin I 0.0720 Total Protein 8.0 Albumin 4.8 Globulin 3.2 Albumin/Globulin Ratio 1.5 Lipase 115 Venous Blood Potassium Urine Color Urine Clarity Urine pH Ur Specific Newman Urine Protein Urine Glucose (UA) Urine Ketones Urine Blood Urine Nitrate Urine Bilirubin Urine Urobilinogen Ur Leukocyte Esterase Urine WBC (Auto) Urine RBC (Auto) Ur Squamous Epith Cells Urine Bacteria Urine Opiates Screen Urine Methadone Screen Ur Barbiturates Screen Ur Phencyclidine Scrn Ur Amphetamines Screen U Benzodiazepines Scrn U Oth Cocaine Metabols U Cannabinoids Screen Blood Type Antibody Screen 05/21/18 05/21/18 05/21/18 07:42 08:09 08:09 WBC RBC Hgb Hct MCV MCH MCHC RDW Plt Count MPV Neut % (Auto) Lymph % (Auto) [place] % (Auto) Eos % (Auto) Baso % (Auto) Neut # (Auto) Lymph # (Auto) [place] # (Auto) Eos # (Auto) Baso # (Auto) Neutrophils % (Manual) Band Neutrophils % Lymphocytes % (Manual) Monocytes % (Manual) Platelet Estimate PT 13.5 H INR 1.2 APTT 35 H Fibrinogen 427 H D-Dimer, Quantitative 632 H pO2 20 L VBG pH 7.25 L VBG pCO2 53 VBG HCO3 19.3 VBG Total CO2 24.8 VBG O2 Sat (Calc) 23.0 L VBG Base Excess -4.6 L VBG Potassium 3.8 Glucose 130 H Lactate 5.2 H* Crit Value Called To Dr zuluaga Crit Value Called By Ralph rodriguez oceanography professor Crit Value Read Back Y Blood Gas Notified Time 749 Sodium 134.0 Potassium Chloride 94.0 L Carbon Dioxide Anion Gap BUN Creatinine Est GFR ( Amer) Est GFR (Non-Af Amer) Random Glucose Calcium Total Bilirubin AST ALT Alkaline Phosphatase Total Creatine Kinase CK-MB (Mass) Troponin I Total Protein Albumin Globulin Albumin/Globulin Ratio Lipase Venous Blood Potassium 3.8 Urine Color Urine Clarity Urine pH Ur Specific Newman Urine Protein Urine Glucose (UA) Urine Ketones Urine Blood Urine Nitrate Urine Bilirubin Urine Urobilinogen Ur Leukocyte Esterase Urine WBC (Auto) Urine RBC (Auto) Ur Squamous Epith Cells Urine Bacteria Urine Opiates Screen Urine Methadone Screen Ur Barbiturates Screen Ur Phencyclidine Scrn Ur Amphetamines Screen U Benzodiazepines Scrn U Oth Cocaine Metabols U Cannabinoids Screen Blood Type A POSITIVE Antibody Screen Negative 05/21/18 05/21/18 11:45 11:45 WBC RBC Hgb Hct MCV MCH MCHC RDW Plt Count MPV Neut % (Auto) Lymph % (Auto) [place] % (Auto) Eos % (Auto) Baso % (Auto) Neut # (Auto) Lymph # (Auto) [place] # (Auto) Eos # (Auto) Baso # (Auto) Neutrophils % (Manual) Band Neutrophils % Lymphocytes % (Manual) Monocytes % (Manual) Platelet Estimate PT INR APTT Fibrinogen D-Dimer, Quantitative pO2 VBG pH VBG pCO2 VBG HCO3 VBG Total CO2 VBG O2 Sat (Calc) VBG Base Excess VBG Potassium Glucose Lactate Crit Value Called To Crit Value Called By Crit Value Read Back Blood Gas Notified Time Sodium Potassium Chloride Carbon Dioxide Anion Gap BUN Creatinine Est GFR ( Amer) Est GFR (Non-Af Amer) Random Glucose Calcium Total Bilirubin AST ALT Alkaline Phosphatase Total Creatine Kinase CK-MB (Mass) Troponin I Total Protein Albumin Globulin Albumin/Globulin Ratio Lipase Venous Blood Potassium Urine Color Yellow Urine Clarity Hazy Urine pH 5.0 Ur Specific Newman 1.014 Urine Protein Negative Urine Glucose (UA) Normal Urine Ketones Negative Urine Blood 2+ H Urine Nitrate Negative Urine Bilirubin Negative Urine Urobilinogen Normal Ur Leukocyte Esterase Neg Urine WBC (Auto) 5 Urine RBC (Auto) 2 Ur Squamous Epith Cells 1 Urine Bacteria Rare Urine Opiates Screen Positive H Urine Methadone Screen Negative Ur Barbiturates Screen Negative Ur Phencyclidine Scrn Negative Ur Amphetamines Screen Negative U Benzodiazepines Scrn Negative U Oth Cocaine Metabols Positive H U Cannabinoids Screen Positive H Blood Type Antibody Screen
--- NOTE | 2018-05-21 23:12 | CP.PCM.PCO ---
Physician Communication Note - Physician Communication Note Physician Communication Note: Called by ICU at 1005 and was able to speak to nurse and Dr. Yan
[2018-05-21 23:35] LABS: BASO % 0.2 % (0.0-2.0); HEMOGLOBIN 14.1 g/dL (12.0-18.0); LYMPH # 0.4 K/uL (1.0-4.3); LYMPH % 4.7 % (20.0-40.0); MEAN CELL VOLUME 86.2 fL (80.0-94.0); MEAN CORPUSCULAR HGB CONC 33.6 g/dL (33.0-37.0); MONO # 0.7 K/uL (0.0-0.8); MONO % 7.7 % (0.0-10.0); NEUT # 7.5 K/uL (1.8-7.0); NEUT % 87.4 % (50.0-75.0); RBC 4.87 Mil/uL (4.40-5.90); RED CELL DISTRIBUTION WIDTH 14.4 % (11.5-14.5); WHITE BLOOD COUNT 8.6 K/uL (4.8-10.8)
[2018-05-21 23:37] LABS: PLATELET COUNT 280 K/uL (130-400)
[2018-05-21 23:39] LABS: ARTERIAL BLOOD GAS HCO3 19.4 mmol/L (21-28); ARTERIAL BLOOD GAS O2 SAT 99.1 % (95-98); ARTERIAL BLOOD GAS PCO2 28 mm/Hg (35-45); ARTERIAL BLOOD GAS PH 7.38 (7.35-7.45); ARTERIAL BLOOD GAS PO2 112 mm/Hg (80-100); ARTERIAL BLOOD GAS TCO2 17.5 mmol/L (22-28)
--- NOTE | 2018-05-21 23:42 | PCM.STROKE ---
Interval History Critical Care Time Spent (in minutes): 30 Stroke Date: 05/21/18 Interval History: pt around 7pm sitting up and talking with family members. he was fine until around 10pm that pt was aphasic and unable to communicate and rt sided neglect and weakness.mild facial droop rt side. drift on the rt UE noted code stroke called by ICU team had EKG sinus rhythm sugar 75 CT head done official report pending no acute bleed Neurologist spoke to ICU nurse and orders given for anticoagulation and MRI meanwhile pt was admitted with SBO and may need surgical options rept CT abd done results waiting continue IVF will need antiplatlets and statin may need surgical clearance No other interval changes in current, PMHx, FHx, SocHx, ROS: other than documented above - Treatment DVT Prophylaxis: Other Anticoagulation: Eliquis Intensive: Yes - Education Written Stroke Education provided regarding: personal risk factors, stroke warn ing sign/symptoms, how to activate emergency medical services, need to follow up after discharge Hx Atrial Fibrillation: No Hx Atrial Flutter: No - Therapy Notes I have reviewed care of the patient with: ICU team NIHSS Stroke Scale - Date/Time Evaluation Performed Date Performed: 05/21/18 Time Performed: 23:45 When Was NIHSS Performed: Baseline - How Severe is the Stroke Level of Consciousness: 0=Alert LOC to Questions: 0=Both comments correct LOC to commands: 0=Obeys both correctly Best Gaze: 0=Normal Visual: 1=Partial hemianopia Facial: 1=Minor asymmetry Motor Arm - Left: 0=No drift Motor Arm - Right: 1=Drift noted before 10 sec Motor Leg - Left: 1=Drift before 5 sec Motor Leg - Right: 0=No drift Limb Ataxia: 0=Absent Sensory: 0=Normal Best Language: 1=Mild to moderate aphasia Dysarthia: 1=Mild to moderate slurring Extinction & Inattention (Neglect): 1=Partial neglect (mild isabel-attention) Score: 7 Exam - Vital Sign Vital Signs: Temp Pulse Resp BP Pulse Ox 97.4 F L 115 H 19 131/96 H 96 05/21/18 20:00 05/21/18 21:01 05/21/18 21:01 05/21/18 21:01 05/21/18 21:01 - Data reviewed Laboratory results: 05/21/18 07:02 05/21/18 07:02
[2018-05-21 23:46] LABS: INR 1.5; PROTHROMBIN TIME 16.2 SECONDS (9.7-12.2)
[2018-05-22 00:02] LABS: CK-MB 25.4 ng/mL (0.0-3.38); TROPONIN I 0.092 ng/mL (0.00-0.120)
[2018-05-22 00:28] LABS: ALB/GLOB RATIO 1.4 (1.0-2.1); ALBUMIN 3.4 g/dL (3.5-5.0); CALCIUM 8.7 mg/dl (8.6-10.4)
[2018-05-22] MEDS: Piperacill/Tazo 3.375gm in Dex 3.375 GM/50 ML BAG IVPB SCH ×2 (01:00→06:15)
[2018-05-22] MEDS: Lactated Ringer's 1,000 ML IV SCH ×2 (02:40→07:45)
[2018-05-22 03:40] LABS: BANDS 20 % (0-2); LYMPHOCYTE 7 % (20-40); MONOCYTE 8 % (0-10); NEUTROPHIL 61 % (50-75); REACTIVE LYMPHOCYTES 4 % (0-0); TOTAL CELLS COUNTED 100
[2018-05-22 03:41] LABS: PLATELET ESTIMATE NORMAL (NORMAL)
[2018-05-22 05:55] LABS: ABG ALLEN TEST POS; ARTERIAL BLOOD GAS HCO3 18.2 mmol/L (21-28); ARTERIAL BLOOD GAS O2 SAT 98.8 % (95-98); ARTERIAL BLOOD GAS PCO2 24 mm/Hg (35-45); ARTERIAL BLOOD GAS PH 7.39 (7.35-7.45); ARTERIAL BLOOD GAS PO2 112 mm/Hg (80-100); ARTERIAL BLOOD GAS TCO2 15.2 mmol/L (22-28)
[2018-05-22] MEDS ORDERED: Dextrose 50% SYRINGE Inj (50 ml) IV STA ×2 (06:03→06:04)
--- NOTE | 2018-05-22 06:14 | CT ---
Date of service: 05/21/2018 PROCEDURE: CT HEAD WITHOUT CONTRAST. HISTORY: rt sided weakness COMPARISON: None available. TECHNIQUE: Axial computed tomography images were obtained through the head/brain without intravenous contrast. Radiation dose: Total exam DLP = 1127.13 mGy-cm. This CT exam was performed using one or more of the following dose reduction techniques: Automated exposure control, adjustment of the mA and/or kV according to patient size, and/or use of iterative reconstruction technique. FINDINGS: HEMORRHAGE: No intracranial hemorrhage. BRAIN: No mass effect or edema. No atrophy or chronic microvascular ischemic changes. VENTRICLES: Unremarkable. No hydrocephalus. CALVARIUM: Unremarkable. PARANASAL SINUSES: Unremarkable as visualized. No significant inflammatory changes. MASTOID AIR CELLS: Unremarkable as visualized. No inflammatory changes. OTHER FINDINGS: None. IMPRESSION: No evidence of acute intracranial hemorrhage territorial infarct mass effect or midline shift. Dilated extra-axial space in the posterior fossa at the midline may represent razia cisterna magna versus arachnoid cyst. Preliminary report was submitted by [facility] Radiology contains concordant findings.
[2018-05-22] MEDS ORDERED: Dextrose 50% SYRINGE Inj (50 ml) IV PRN (06:20)
[2018-05-22] MEDS ORDERED: Glucagon Recombinant 1 mg Inj IM PRN (06:20)
--- NOTE | 2018-05-22 06:27 | CT ---
Date of service: 05/21/2018 PROCEDURE: CT Abdomen and Pelvis without intravenous contrast HISTORY: r/o perforation COMPARISON: Comparison is made to the previous same-day study TECHNIQUE: Axial and reformatted coronal and sagittal CT images of the abdomen and pelvis were obtained without IV or oral contrast administration. Contrast dose: 0 Radiation dose: Total exam DLP = 731.22 mGy-cm. This CT exam was performed using one or more of the following dose reduction techniques: Automated exposure control, adjustment of the mA and/or kV according to patient size, and/or use of iterative reconstruction technique. FINDINGS: LOWER THORAX: No significant interval changes in the lung bases noted since the previous exams. Small opacity seen at the lung bases likely atelectasis P questionable trace left pleural effusion. NG tube seen extending to the stomach. LIVER: No significant interval changes. GALLBLADDER AND BILE DUCTS: No definite evidence of acute cholecystitis. Possible gallbladder sludge or concentrated contrast from prior study. PANCREAS: The pancreas is not well visualized in this exam. SPLEEN: Unremarkable. ADRENALS: Not well visualized in this exam. KIDNEYS AND URETERS: Punctate calcification noted in the kidneys more prominent on the left. VASCULATURE: Unremarkable. No aortic aneurysm. Atherosclerotic calcification noted in the abdominal aorta. BOWEL: Dilated small at bowel loops are again noted. Questionable pneumatosis intestinalis in the distal small bowel loops at the pelvis. Suspicious for large bowel wall thickening versus incomplete distention. The differential consideration includes bowel ileus versus small bowel obstruction. APPENDIX: No definite evidence of appendicitis. The appendix is not clearly visualized in this exam. PERITONEUM: There is moderate amount of free fluid in the abdomen and pelvis. No definite evidence of free air. LYMPH NODES: Unremarkable. No enlarged lymph nodes. BLADDER: Funez catheter seen extending to the bladder. REPRODUCTIVE: Unremarkable. BONES: No acute fracture. OTHER FINDINGS: None. IMPRESSION: Persistent dilated small bowel loops more prominent distally. Questionable pneumatosis intestinalis in the distal small bowel loops at the pelvis. No definite evidence of free air. Moderate amount of ascites. Limited study due to motion artifact and lack of IV and oral contrast administration. Otherwise no significant interval changes. Preliminary report was submitted by [facility] Radiology contains concordant findings.
[2018-05-22 07:17] LABS: ALB/GLOB RATIO 1.4 (1.0-2.1); ALBUMIN 3.4 g/dL (3.5-5.0)
[2018-05-22 07:49] LABS: BASO % 0.1 % (0.0-2.0); EOS % 0.4 % (0.0-4.0); HEMOGLOBIN 13.9 g/dL (12.0-18.0); LYMPH # 0.4 K/uL (1.0-4.3); MEAN CELL VOLUME 87.3 fL (80.0-94.0); MEAN CORPUSCULAR HEMOGLOBIN 29.1 pg (27.0-31.0); MEAN CORPUSCULAR HGB CONC 33.4 g/dL (33.0-37.0); MEAN PLATELET VOLUME 8.5 fL (7.2-11.7); MONO # 0.7 K/uL (0.0-0.8); MONO % 6.8 % (0.0-10.0); NEUT % 88.7 % (50.0-75.0); PLATELET COUNT 247 K/uL (130-400); RBC 4.77 Mil/uL (4.40-5.90); RED CELL DISTRIBUTION WIDTH 14.4 % (11.5-14.5); WHITE BLOOD COUNT 10.1 K/uL (4.8-10.8)
[2018-05-22] MEDS: HYDROmorphone 1 mg/ml ISec IVP PRN (07:55)
[2018-05-22 08:17] VITALS: TEMP 98.8
[2018-05-22] MEDS ORDERED: Lactated Ringer's 1,000 ML IV ONE (08:45)
[2018-05-22 09:07] LABS: INR 2.3; PROTHROMBIN TIME 24.7 SECONDS (9.7-12.2)
[2018-05-22] MEDS ORDERED: Midazolam 2 MG/2 ML VIAL ONE (09:08)
[2018-05-22] MEDS ORDERED: Norepinephrine 8 MG in Dextrose 5% In Water 242 ML IV PRN (09:27)
[2018-05-22] MEDS ORDERED: Midazolam 50 mg/10 ml 100 MG in Dextrose 5% In Water 80 ML IV PRN (09:30)
[2018-05-22] MEDS ORDERED: Midazolam 50 mg/10 ml 100 MG in Dextrose 5% In Water 80 ML IV SCH (09:30)
[2018-05-22] MEDS ORDERED: Midazolam 2 MG/2 ML VIAL IVP ONE (09:56)
[2018-05-22 10:15] LABS: BANDS 58 % (0-2); LYMPHOCYTE 14 % (20-40); MONOCYTE 7 % (0-10); NEUTROPHIL 21 % (50-75); PLATELET ESTIMATE NORMAL (NORMAL); TOTAL CELLS COUNTED 100
[2018-05-22] MEDS ORDERED: Sodium Chloride 0.9% 2,000 ML IV ONE (10:15)
[2018-05-22 10:25] VITALS: BP 98/62; PULSE 101; RESP 17; O2SAT 100
[2018-05-22] MEDS ORDERED: D5W ONE (10:32)
[2018-05-22] MEDS ORDERED: DOBUTAMINE 500 MG/250 ML ONE (10:32)
[2018-05-22] MEDS ORDERED: Sodium Bicarbonate (8.4%) 50 Meq Syringe ONE (10:32)
[2018-05-22] MEDS ORDERED: Sodium Bicarbonate (8.4%) 50 mEq Vial ONE ×3 (10:47→11:02)
--- NOTE | 2018-05-22 11:44 | PCM.SURG1 ---
Surgeon's Initial Post Op Note - Surgeon's Notes Surgeon: Dr. Evans Cherry Pitter: Avtar PGY2 Type of Anesthesia: General Endo Anesthesia Administered By: Dr. Fulton, Dr. Prieto Pre-Operative Diagnosis: Septic shock, Lactic acidosis, suspected mesenteric ischemia, CAD, P.E., CVA, TRISH, Operative Findings: dilated small and large bowel, colon and small bowel ischemia, hemorrhagic intraperitoneal fluid, peritonitis, liver ischemia, extensive adhesions Post-Operative Diagnosis: Septic shock, Lactic acidosis, colon and small bowel ischemia, CAD, P.E., CVA, TRISH, Expiration Operation Performed: Diagnostic laparoscopy, drainage of hemorrhagic intraperitoneal fluid Specimen/Specimens Removed: NONE Estimated Blood Loss: EBL {In ML}: 5 Blood Products Given: N/A Drains Used: No Drains Post-Op Condition: Other () Date of Surgery/Procedure: 05/22/18 Time of Surgery/Procedure: 10:15
--- NOTE | 2018-05-22 11:46 | CP.PCM.PRO ---
Pronouncement of Note - Clinical Findings Physical Exam: No Response Verbal/Painful Stimuli, Absent Peripheral Puls es{Carotid & Femoral}, Absent Heart & Breath Sounds, No Pupillary Light Reflex, No Corneal Reflex, Pupils Fixed & Dilated, Absence of Vital Signs - Pronouncement Time Time of Pronouncement of : 11:09 - Notifications Pronouncement Notifications: Family Notified, Atending Notified Tower Observer Notified: Yes (ID case #: [id number]) - Autopsy Autopsy Requested: Yes - [place] [id number]
--- NOTE | 2018-05-22 13:28 | PCM.RRT ---
ENGINEERING TECHNICIAN Nurses Assessment - Situation Date: 05/22/18 Time ENGINEERING TECHNICIAN was called: 10:52 ENGINEERING TECHNICIAN Responder Arrival Time:: 10:54 ENGINEERING TECHNICIAN Location:: Operating Room - IV IV Inserted during ENGINEERING TECHNICIAN?: No - Respiratory ENGINEERING TECHNICIAN Delivery Method: Intubated - Ventilator Settings Mode: PRVC Ventilator Respiratory Rate Settin Ventilator Tidal Volume Settin PEEP/CPAP (cm H2O): 5 SAO2 %: 100 FIO2 (% Oxygen): 100 - Medication Medications Administered During ENGINEERING TECHNICIAN: Epinephrine x 6. Bicarb x 6. Mg x 1. Calcium Gluconate x 1. Please See Code Sheet for Times. - Diagnostic Test Ordered EKG: No Chest X-Ray: No CT Scan: No CPR started during ENGINEERING TECHNICIAN?: Yes - Vital Signs Vital Signs: Renetta Blue - Olive Coma Scale Coma Scale Eye Opening: No response - Time ENGINEERING TECHNICIAN Ended Time ENGINEERING TECHNICIAN Ended: 11:09 - Vital Signs at end of ENGINEERING TECHNICIAN Vital Signs at end of ENGINEERING TECHNICIAN: Patient I.Reason for ENGINEERING TECHNICIAN - A) Acute Change in Patient: Subjective: Renetta Tracy Called for patient in the Operating room at 10:52 AM. On arrival patient already had medications administered and was actively undergoing compression. A total a of 6 Epinephrine, 6 Bicarbs 1 magnesium, and 1 Calcium were given during the Cold Blue. Patient remained asystole. pronouncement at 11:09PM. Family was notified by Surgical Attending. - Neurological Status (Select all that apply): absent: Alert, Responsive, Oriented, Verbal, Follows Commands, Disoriented, Confused, Lethargic, Aggressive, Weakness Other (Please specify): Unresponsive. 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
--- NOTE | 2018-05-22 13:38 | RAD ---
Date of service: 05/22/2018 PROCEDURE: CHEST RADIOGRAPH, 1 VIEW HISTORY: post intubation COMPARISON: Comparison is made with 05/21/2018 FINDINGS: LUNGS: No significant interval changes in the lungs noted since the previous exam. The ET tube is seen at appropriate position. PLEURA: No pneumothorax or pleural fluid seen. CARDIOVASCULAR: No aortic atherosclerotic calcification present. Normal. OSSEOUS STRUCTURES: No significant abnormalities. VISUALIZED UPPER ABDOMEN: NG tube seen extending to the stomach. OTHER FINDINGS: None. IMPRESSION: No active disease.
--- NOTE | 2018-05-22 14:46 | RAD ---
Date of service: 05/22/2018 HISTORY: reassess COMPARISON: Comparison is made with 05/21/2018 TECHNIQUE: 1 view obtained. FINDINGS: BOWEL: Interval improvement in the previously noted dilated small and large bowel loops since the previous exam. Persistent mild diffuse dilatation of the bowel loops. BONES: Normal. OTHER FINDINGS: None. IMPRESSION: Interval mild improvement in the previously noted dilated small and large bowel loops.
--- NOTE | 2018-05-22 16:11 | PCM.PROC ---
Procedures Attestation:: I certify that I have explained the specified Operation(s) or Procedure(s), risks, benefits and reasonable alternatives to the Patient and/or other person responsible. The opportunity was given to ask questions and all questions answered - Intubation Time Out Performed: No (urgent) Sedative: Versed, Fentanyl Laryngoscope: Glidescope ET Tube Size: 8.0 ET Tube Uncuffed: No (cuffed) ET Tube Secured at Depth: 25 ET Tube Secured Locarion: Lips ET Tube Placement Confirmation: Visualized Passing Through Cords, Breath Sounds Equal Bilaterally, No Breath Sounds Over Epigastrum, Confirmation w/Capnometry Patient Tolerated Procedure: Well, No Complications Procedure Immediate Complications: None
--- NOTE | 2018-05-22 18:58 | CP.PCM.PN ---
Subjective - Date & Time of Evaluation Date of Evaluation: 05/22/18 Time of Evaluation: 15:00 - Subjective Subjective: MED examiner called spoke to dr. shonna castillo pt family bedside mulitple member pt been using havinglot sofissue at night like stroke pe intubated s/p laproscopy septicemia intesvist managed it. Objective - Vital Signs/Intake and Output Vital Signs (last 24 hours): Temp Pulse Resp BP Pulse Ox 98.8 F 101 H 17 98/62 L 100 05/22/18 08:00 05/22/18 10:00 05/22/18 10:00 05/22/18 09:58 05/22/18 10:00 Intake and Output: 05/22/18 05/22/18 06:59 18:59 Intake Total 1610 2800 Output Total 1800 550 Balance -190 2250 - Labs Labs: 05/22/18 06:31 05/22/18 06:31 PT 24.7 SECONDS (9.7-12.2) H D 05/22/18 08:53 INR 2.3 D 05/22/18 08:53 APTT 32 SECONDS (21-34) 05/22/18 08:53
--- NOTE | 2018-05-24 00:23 | OP ---
PROCEDURE DATE: 05/22/2018 PREOPERATIVE DIAGNOSES: 1. Severe metabolic acidosis. 2. Possible mesenteric ischemia. 3. Septic shock. 4. Intravenous drug abuse. 5. Hypercoagulable syndrome. 6. Pulmonary embolism. POSTOPERATIVE DIAGNOSES: 1. Severe metabolic acidosis. 2. Possible mesenteric ischemia. 3. Septic shock. 4. Intravenous drug abuse. 5. Hypercoagulable syndrome. 6. Pulmonary embolism. 7. Complete intestinal ischemia involving small and large intestine. PROCEDURE DONE: 1. Diagnostic laparoscopy. 2. Drainage of intraperitoneal fluid collection. SURGEON: Bahman Evans MD. FUSE COILER: Abe Nova DO, PGY-2 resident. ANESTHESIA: General anesthesia. ESTIMATED BLOOD LOSS: Around 5 mL. DRAINS: None. PATHOLOGY: None. COMPLICATIONS: None. INTRAOPERATIVE FINDINGS: The patient had complete ischemia of the small and large intestine, and the patient had hemorrhagic fluid collection in the right upper quadrant and in the pelvis. DESCRIPTION OF THE PROCEDURE: On intraoperative steps, this is a 37-year-old male who was diagnosed with severe metabolic acidosis as well as septic shock, and the patient also had hypercoagulable syndrome leading to pulmonary embolism as well as multiple skin necrosis, and the patient was deteriorating in the ICU and family was consented for diagnostic laparoscopy with possible bowel resection. The patient was brought to the OR, placed supine on operating table, and after induction of anesthesia, the supraumbilical incision was made. Using open technique, the peritoneal cavity was entered. Very low pressure pneumo was created. An another 5-mm port was placed. The patient found to have complete ischemia of the small as well as the large intestine. The small bowel was run from the proximal to distal end and cecum, ascending colon, transverse colon as well the descending colon had spots of ischemia as well as large patches of necrosis, and the patient also had hemorrhagic fluid collection that was drained quickly and the procedure was completed within 15 minutes because the patient was unstable and now the wound was closed. The fascia with 0 Vicryl, skin with edmond, and dry sterile dressing was applied. The patient was placed on the stretcher, and after completion of the procedure during the transportation, the patient was found to have pulseless electrical activity and the rest of the note will be dictated by the anesthesiologist, and up to the closure of the wound, the patient tolerated the procedure well. Count of instrument and gauze was correct. Bahman Evans MD
--- NOTE | 2018-05-24 14:34 | CARD ---
APPROVED REPORT Date of service: 05/21/2018 EKG Measurement Heart [id number] 120P60 [id number] <Conclusion> Sinus tachycardia Low voltage QRS prolonged QTc Borderline ECG
--- NOTE | 2018-05-24 15:08 | CARD ---
APPROVED REPORT Date of service: 05/21/2018 EKG Measurement Heart [id number] <Conclusion> Sinus tachycardia Possible Left atrial enlargement Low voltage QRS Nonspecific ST abnormality Prolonged QT Abnormal ECG
== END 2018-05-22 11:09 | DRG 584 ==
LOC: C.ER 06:06 → C.9I 13:08
PROVIDERS: ADMIT Internal Medicine Nephrology; ATTEND Internal Medicine Nephrology
PROC: 0C9 Mouth and Throat, Drainage (ICD-10-PCS; principal; 2018-05-21)
PROC: 0BH17EZ Insertion of Endotracheal Airway into Trachea, Via Natural or Artificial Opening (ICD-10-PCS; 2018-05-21)
DX: A41.9 Sepsis, unspecified organism (principal); I26.99 Other pulmonary embolism without acute cor pulmonale; N17.9 Acute kidney failure, unspecified; K55.069 Acute infarction of intestine, part and extent unspecified; I63.9 Cerebral infarction, unspecified; E87.2 Acidosis; D68.59 Other primary thrombophilia; F14.90 Cocaine use, unspecified, uncomplicated; J90 Pleural effusion, not elsewhere classified; K56.609 Unspecified intestinal obstruction, unspecified as to partial versus complete obstruction; K56.7 Ileus, unspecified; I46.9 Cardiac arrest, cause unspecified; I10 Essential (primary) hypertension; I25.10 Atherosclerotic heart disease of native coronary artery without angina pectoris; F12.90 Cannabis use, unspecified, uncomplicated; I25.2 Old myocardial infarction; R47.01 Aphasia; F17.210 Nicotine dependence, cigarettes, uncomplicated